=== PATIENT | female | born 1985 | race African-American/Black ===

== ENCOUNTER 2018-08-01 12:29 | Inpatient (IN) ==
[2018-08-01] MEDS ORDERED: NS 1,000 ML IV ONE (13:19)
[2018-08-01] MEDS ORDERED: VANCOMYCIN 1 GM/NS 1 GM/250 ML IVPB IV ONE ×2 (13:19→18:30)
--- NOTE | 2018-08-01 13:35 | PROVIDER DOCUMENTATION ---
This chart was entered by Yesica Samson Scribe, acting as scribe for Alessandro Gross CRNP. HPI-General Adult - General Chief Complaint: Extremity Pain Stated Complaint: CELLULITIS / LEG Time Seen by Provider: 08/01/18 13:13 Source: patient Allergies/Adverse Reactions: Patient Allergies Allergy/AdvReac Type Severity Reaction Status Date / Time No Known Allergies Allergy Verified 03/16/17 20:30 Home Medications: Home Medication List Medication Instructions Recorded Confirmed Last Taken Type Naproxen 500 mg PO BID PRN #15 tablet 03/16/17 Unknown Rx Clindamycin [Cleocin] 150 mg PO Q6HR #30 cap 07/30/18 Unknown Rx - History of Present Illness -Gen Adult Nature of Presenting Problems: 33 yof presents to ed w/co cellulitis right lower leg, swollen, red and warm to touch. pt was treated in ed for flu like symptoms 3 days ago and was given antibiotic for cellulitis. pt has no fever, nvd, sob, or cp. Review of Systems - Adult - REVIEW OF SYSTEMS - ADULT Constitutional: reports: no symptoms reported. denies: chills, fever, fatique Eyes: reports: no symptoms reported Ears, Nose, Mouth & Throat: reports: no symptoms reported Cardiovascular: reports: no symptoms reported Respiratory: reports: no symptoms reported Gastrointestinal: reports: no symptoms reported Genitourinary: reports: no symptoms reported Musculoskeletal: reports: no symptoms reported Integumentary: reports: see HPI, other (cellulitis rt lower leg.). denies: hair loss, itching, mole changes, nail changes, rash Neurological: reports: no symptoms reported Psychiatric: reports: no symptoms reported Endocrine: reports: no symptoms reported Hematologic/Lymphatic: reports: no symptoms reported Allergic/Immunologic: reports: no symptoms reported All Other Systems: Reviewed and Negative Past History - Adult - PAST MEDICAL HISTORY-ADULT Review of Records: reports: Old Records Reviewed, Nursing Assessment Review, Medications Reviewed, Social history reviewed & non-contributory. Major Childhood Illnesses: reports: denies history Cardiovascular: reports: denies history Respiratory: reports: denies history Gastrointestinal: reports: denies history Obstetrical/Gynecological: reports: denies history Genitourinary: reports: denies history Musculoskeletal: reports: denies history Neurological: reports: denies history Endocrine/Immune: reports: denies history Other Conditions: reports: denies history - PRIOR SURGERIES/PROCEDURES Surgical/Procedure History: reports: - IMMUNIZATION STATUS Childhood Immunizations: See Nurse Assessment Flu Vaccine: See Nurse Assessment - FAMILY HISTORY Family History: reviewed, not pertinent - SOCIAL HISTORY Smoking: other (former smoker) Substance Use: denies Physical Exam-General - PHYSICAL EXAM-ADULT Initial Vital Signs Reviewed: Yes - CONSTITUTIONAL General Appearance: appears well, alert, no apparent distress - EYES Eyes: PERRL/EOMI - HEAD, EARS, NOSE, MOUTH & THROAT HENMT: normocephalic/atraumatic, moist mucous membranes, normal ENT inspection, TMs normal, pharynx normal - NECK Neck: non-tender, full range of motion, supple, normal inspection - RESPIRATORY Respiratory: chest non-tender, lungs clear, normal breath sounds - CARDIOVASCULAR Cardiovascular: normal peripheral pulses, regular rate, rhythm - GASTROINTESTINAL (ABDOMEN) Abdominal Exam: normal bowel sounds, non tender, soft - LYMPHATIC Lymphatic: no adenopathy - MUSCULOSKELETAL Back Exam: normal inspection, no CVA tenderness, no vertebral tenderness Extremity: normal range of motion, non-tender, normal inspection - SKIN Integumentary: erythema, swelling (rt lower extremity more swollen than 3 days ago when pt was in er previously.), tenderness, warm. 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, grossly normal, no motor/sensory deficits - PSYCHIATRIC Psych/Mental Status: normal mood/affect, normal thought content, normal thought process, oriented x 3 Progress - PLAN OF CARE/RESULTS Progress/Plan/Lab Results: Vital Signs - 8 hr 08/01/18 12:39 Temperature 98.0 F Pulse Rate 80 Respiratory Rate 18 Blood Pressure 120/056 O2 Sat by Pulse Oximetry 100 Orders Category Date Time Status ED: Urine Bedside ORDERED Care 08/01/18 13:19 Active Saline Loc NOW Care 08/01/18 13:16 Active BLOOD CULTURE [BLDCUL] Stat Lab 08/01/18 13:21 Ordered CBC WITH ELECTRONIC DIFF [HEME] Stat Lab 08/01/18 13:21 Ordered COMPREHENSIVE METABOLIC PANEL [CHEM] Stat Lab 08/01/18 13:21 Ordered LACTATE, PLASMA [CHEM] Stat Lab 08/01/18 13:[address] W/POSS RFLX CULT [URINALYSIS] Stat Lab 08/01/18 13:19 Uncollected 0.9% Sodium Chloride Inj [Ns] 1,000 ml Med 08/01/18 13:19 Active IV 125 mls/hr Vancomycin 1 gm/Ns Med 08/01/18 13:19 Active 1 gm in 250 ml IV NOW Laboratory Tests 08/01/18 08/01/18 08/01/18 13:38 13:38 13:38 WBC 6.78 RBC 5.44 H Hgb 12.4 Hct 36.5 L MCV 67.1 L MCH 22.8 L MCHC 34.0 RDW Std Deviation 14.6 H Plt Count 239 MPV Not Reportable Immature Gran % (Auto) 0.3 Neut % (Auto) 68.5 Lymph % (Auto) 21.2 [place] % (Auto) 8.7 Eos % (Auto) 1.0 Baso % (Auto) 0.3 Immature Gran # (Auto) 0.02 Neut # (Auto) 4.64 Lymph # (Auto) 1.44 [place] # (Auto) 0.59 Eos # (Auto) 0.07 Baso # (Auto) 0.02 Sodium 140 Potassium 3.3 L Chloride 101 Carbon Dioxide 27 Anion Gap 12 BUN 12 Creatinine 0.8 Estimated GFR/1.73 m2 > 60 BUN/Creatinine Ratio 15 Glucose 116 H Calculated Osmolality 280 Calcium 8.7 L Total Bilirubin 0.30 AST 15 ALT 17 Alkaline Phosphatase 59 Total Protein 7.8 Albumin 3.9 Globulin 4.0 Albumin/Globulin Ratio 1.0 Plasma Lactate 1.3 Urine Color Urine Clarity Urine pH Ur Specific [place] Urine Protein Urine Ketones Urine Blood Urine Nitrite Urine Bilirubin Urine Urobilinogen Urine WBC Urine Glucose 08/01/18 13:48 WBC RBC Hgb Hct MCV MCH MCHC RDW Std Deviation Plt Count MPV Immature Gran % (Auto) Neut % (Auto) Lymph % (Auto) [place] % (Auto) Eos % (Auto) Baso % (Auto) Immature Gran # (Auto) Neut # (Auto) Lymph # (Auto) [place] # (Auto) Eos # (Auto) Baso # (Auto) Sodium Potassium Chloride Carbon Dioxide Anion Gap BUN Creatinine Estimated GFR/1.73 m2 BUN/Creatinine Ratio Glucose Calculated Osmolality Calcium Total Bilirubin AST ALT Alkaline Phosphatase Total Protein Albumin Globulin Albumin/Globulin Ratio Plasma Lactate Urine Color YELLOW Urine Clarity CLEAR Urine pH 6.5 Ur Specific [place] 1.015 Urine Protein TRACE A Urine Ketones TRACE Urine Blood 1+ A Urine Nitrite NEGATIVE Urine Bilirubin NEGATIVE Urine Urobilinogen 4 Urine WBC TRACE A Urine Glucose NEGATIVE Discussed results and plan of care with patient. Patient agrees with plan and verbalizes understanding. Result Diagrams: 08/01/18 13:38 08/01/18 13:38 - CONSULTS/PCP/HOSPITALIST Notification #1 *Consult/PCP/Hospitalist*: Dr. Knutson Time Discussed: 15:10 Reason/Comments: Admission Consult Disposition: Admit Departure - Departure Date of Disposition Decision: 08/01/18 Time of Disposition Decision: 14:32 DIAGNOSIS: Cellulitis Qualifiers: Site of cellulitis: extremity Site of cellulitis of extremity: lower extremity Laterality: right Qualified Code(s): L03.115 - Cellulitis of right lower limb Disposition: ADMITTED INPATIENT 09 Certified Medical Emergency: Emergent Condition: Stable Referrals and Follow-Ups: None,PCP [Primary Care Provider] - - Critical Care Note This patient required my direct & personal management of CC.: No Attestation - Physician/ GUS Attestation Patient care was provided by Advanced Practice Provider:: Yes Advanced Practice Provider:: Alessandro Gross Advanced Practice Provider documentation review:: The Mid-level provider documentation, treatment plan and medical decision making was reviewed by the physician who agrees with all treatment and medical decision making by the P. The physician spent face to face time with patient:: No Advanced Practice Provider documentation review:: Supervising physician onsite and consulted in the evaluation and care of this patient. The physician did not have a face to face encounter with the patient. This chart was documented by the indicated scribe, (Yesica Samson Scribe) and accurately reflects the services I performed and decisions made by me, Alessandro Gross CRNP, as attested by the provider's signature.
[2018-08-01 14:06] LABS: BASO# 0.02 X1000 (0.0-0.2); BASO% 0.3 % (0.0-0.8); EOS# 0.07 X1000 (0.0-0.7); HEMATOCRIT 36.5 % (37.0-47.0); HEMOGLOBIN 12.4 g/dL (12.0-16.0); IMM GRAN# 0.02 X1000 (0.0-0.04); IMM GRAN% 0.3 % (0.0-0.5); LYMPH# 1.44 X1000 (1.2-3.4); LYMPH% 21.2 % (20.5-51.1); MCH 22.8 PG (27-31); MCV 67.1 FL (81-99); MONO# 0.59 X1000 (0.11-0.59); MONO% 8.7 % (1.7-9.3); NEUT# 4.64 X1000 (1.4-6.5); NEUT% 68.5 % (42.2-75.2); PLT 239 X1000 (130-400); RBC 5.44 XMIL (4.2-5.4); RDW 14.6 % (11.5-14.5); WBC 6.78 X1000 (4.8-10.8)
[2018-08-01 14:07] LABS: AGAP 12; ALBUMIN 3.9 g/dL (3.5-5.0); ALKALINE PHOSPHATASE 59 U/L (32-104); BUN 12 mg/dL (8-22); CALCIUM 8.7 mg/dL (8.8-10.2); CHLORIDE 101 mmol/L (98-107); COSMO 280; CREATININE 0.8 mg/dL (0.5-0.9); ESTIMATED GFR > 60; GLUCOSE 116 mg/dL (70-104); GOT 15 U/L (10-30); GPT 17 U/L (10-36); POTASSIUM 3.3 mmol/L (3.5-5.1); SODIUM 140 mmol/L (136-145); TCO2 27 mmol/L (25-35); TOTAL PROTEIN 7.8 g/dL (6.3-8.3)
[2018-08-01 14:14] LABS: BILIRUBIN URINE NEGATIVE (NEGATIVE); BLOOD URINE 1+ (NEGATIVE); CLARITY CLEAR (CLEAR); COLOR YELLOW; GLUCOSE URINE NEGATIVE (NEGATIVE); KETONE URINE TRACE mg/dL (NEGATIVE); LEUKOCYTES URINE TRACE (NEGATIVE); NITRITE URINE NEGATIVE (NEGATIVE); PH URINE 6.5; PROTEIN URINE TRACE mg/dL (NEGATIVE); SP GRAVITY URINE 1.015; UROBILINOGEN URINE 4 mg/dL
[2018-08-01 14:40] LABS: URINE SOURCE CLEAN CATCH
[2018-08-01 14:43] LABS: URINE BACTERIA 2+ /HFP; URINE CAST NONE SEEN /LPF; URINE CRYSTAL NONE SEEN /HPF; URINE EPITHELIAL CELLS >10 /HPF (<10); URINE RBC <10 /HPF (<10); URINE YEAST NONE SEEN /HPF
[2018-08-01] MEDS ORDERED: ZOFRAN IV PRN ×2 (15:10→17:27)
[2018-08-01] MEDS ORDERED: TORADOL IV PRN (15:10)
[2018-08-01] MEDS ORDERED: FLU VACCINE IM ONE (17:12)
[2018-08-01] MEDS ORDERED: TYLENOL PO PRN (17:27)
[2018-08-01] MEDS ORDERED: VANCOMYCIN IV PER PHARMACY MISC SCH (17:30)
[2018-08-01] MEDS ORDERED: NS 1,000 ML ONE (21:16)
[2018-08-01] MEDS: ZOSYN 3.375 GM in NS 50 ML IV SCH (21:20)
--- NOTE | 2018-08-02 00:26 | HISTORY AND PHYSICAL ---
CHIEF COMPLAINT: Leg extremity swelling. HISTORY OF PRESENT ILLNESS: Patient is a very pleasant 33-year-old female who notes that her right lower extremity below the knee has been red, swollen, warm to the touch. She was treated in the ED for flu-like symptoms 3 days ago, was given an antibiotic for cellulitis, but has really had no improvement. Denies any fevers or chills. States that the lower extremity on the right is twice the size of the one on the left. Denies any pain otherwise. ALLERGIES: No known drug allergies. MEDICATIONS: Naprosyn, clindamycin from the ER a few days ago. REVIEW OF SYSTEMS: Denies any fevers, chills, cough, congestion. Denies any shortness of breath. Denies any dysuria, frequency, urgency, hesitancy, polyuria or polydipsia. Denies skin rashes, other than current. Denies headaches, blurred vision, change in vision. Denies any focalized numbness or tingling. PAST MEDICAL HISTORY: She has no current chronic active medical problems. SURGICAL HISTORY: She has had a . FAMILY HISTORY: Noncontributory. SOCIAL HISTORY: Patient is a former smoker. Does not drink. OBJECTIVE: Vital Signs: She is afebrile, temp 98 degrees, pulse 80, respiratory 18, BP 120/56, saturation 100% on room air. General: Patient is very pleasant to talk with. She is in no current distress. HEENT: Normocephalic. Neck: Supple. CARDIOVASCULAR: Regular rate. Chest: Clear, nonlabored. Abdomen: Soft nondistended. Extremities: Moves all extremities. She does have 2+ edema, very tender to palpation over her gleason. On the right lower extremity she has an erythematous area without any drainage on the posterior aspect of her right calf. Neurologic: No focal changes. ASSESSMENT: 1. Cellulitis right lower extremity. 2. Edema, right lower extremity. 3. Hypokalemia. 4. Mildly elevated plasma lactate. PLAN: We will admit patient to the hospital. Will observe her hyperglycemia at 116, place her on antibiotics, vancomycin and Zosyn. Pain control as needed and will follow. cc: Genaro Knutson MD
[2018-08-02] MEDS: ZOSYN 3.375 GM in NS 50 ML IV SCH ×5 (01:57→21:25)
[2018-08-02] MEDS ORDERED: VANCOMYCIN 1 GM/NS 1 GM/250 ML IVPB IV SCH (02:00)
[2018-08-02] MEDS ORDERED: NS 1,000 ML ONE (05:07)
[2018-08-02] MEDS: VANCOMYCIN 1,800 MG in NS 250 ML IV SCH ×3 (06:00→18:24)
[2018-08-02] MEDS: LASIX IV SCH (11:04)
[2018-08-02] MEDS ORDERED: BLISTEX MEDICATED BERRY LIP BALM TOP PRN (11:51)
--- NOTE | 2018-08-02 23:46 | PROGRESS NOTE ---
DATE: 08/02/2018 SUBJECTIVE: Patient notes overall that she is feeling a little bit better, still having lots of pain in her right lower extremity as well as in her right ankle. Still having swelling in the right greater than left. Denies any fevers, chills. PHYSICAL EXAM: Vital signs: Temperature 98 degrees, pulse 75, respiratory 18, BP 116/66. General: Patient is awake, currently in no distress. Very pleasant to talk with. HEENT: Normocephalic. Neck: Supple. Cardiovascular: Regular rate. Chest: Clear. Abdomen: Soft. Extremities: Moves all extremities. Neurologic: No changes. Skin: She is noted to have redness to the back of her right lower extremity as well as edema in her right lower extremity and right ankle. ASSESSMENT: 1. Cellulitis right lower extremity. 2. Edema right lower extremity 3. Others. PLAN: We will continue patient in the hospital. Continue antibiotics today. Hopefully, she can be discharged home over the next day or 2, if symptoms improve. cc: Genaro Knutson MD
[2018-08-03] MEDS: ZOSYN 3.375 GM in NS 50 ML IV SCH ×4 (03:39→21:30)
[2018-08-03] MEDS: LASIX IV SCH (09:09)
--- NOTE | 2018-08-03 15:32 | Diag Imaging Result Doc PS360 ---
EXAM: ANKLE 2 VIEWS RIGHT - 08/03/2018 HISTORY: pain TECHNIQUE: Right ankle two views COMPARISON: None. FINDINGS: There is soft tissue swelling which is most prominent medially. There is no fracture or dislocation identified. There are no erosive or destructive changes identified. The joint space appears relatively well preserved. There are possibly mild degenerative changes of the dorsal hindfoot/midfoot. IMPRESSION: Soft tissue swelling. No evidence of fracture or dislocation. No indication of osteomyelitis. Please note that early osteomyelitis can be radiographically occult. Electronically signed by Carlito Gómez 08/03/2018 3:29 PM
[2018-08-03] MEDS: LACTULOSE PO SCH (16:16)
--- NOTE | 2018-08-04 00:30 | PROGRESS NOTE ---
DATE: 08/03/2018 SUBJECTIVE: Patient notes she is having pain in her right ankle. Still having pain to the touch on her right calf. PHYSICAL EXAMINATION: Vital Signs: Temperature 97 degrees, pulse 58, respiratory 18, BP 142/72. General: Patient is awake. She is in no distress. She is sitting up in the bed. HEENT: Normocephalic. Neck: Supple. Cardiovascular: Regular rate. Chest: Clear and nonlabored. Abdomen: Soft. Extremities: Moves all extremities. She is tender to touch over her right ankle. She has trace edema. She has very minimal edema in her right lower extremity. The redness over her right calf appears to be improving. There is no drainage. ASSESSMENT: 1. Cellulitis right lower extremity. 2. Edema. 3. Hypokalemia. 4. Pain. PLAN: We will continue patient in the hospital. Continue antibiotics. We will check an x-ray of her ankle and we will follow. cc: Genaro Knutson MD
[2018-08-04] MEDS: ZOSYN 3.375 GM in NS 50 ML IV SCH ×2 (02:30→08:39)
[2018-08-04] MEDS: LACTULOSE PO SCH ×2 (02:31→12:19)
[2018-08-04 03:43] VITALS: BP 139/74
[2018-08-04] MEDS: LASIX IV SCH (08:40)
[2018-08-04] MEDS ORDERED: MIRALAX PO SCH (09:00)
--- NOTE | 2018-08-05 07:20 | DISCHARGE SUMMARY ---
ADMISSION DATE: 08/01/2018 DISCHARGE DATE: 08/04/2018 DISCHARGE DIAGNOSES: 1. Cellulitis right lower extremity. 2. Chronic edema, right lower extremity. 3. Hypokalemia. 4. Right lower extremity pain. DIAGNOSTICS: Ankle x-ray revealed soft tissue swelling, no evidence of fracture or dislocation. No indication of osteomyelitis. MICROBIOLOGY: 1. Blood cultures revealed no growth x2 after 48 hours. 2. Urine culture revealed E coli. HOSPITAL COURSE: Ms Santa presented to emergency room with increasing right lower extremity pain, redness, and warmth. She was found to have cellulitis for which she received antibiotic coverage of vancomycin and Zosyn. She remained afebrile throughout the hospitalization. Ankle x- ray revealed no osteomyelitis, no evidence of fracture or dislocation. Symptoms have improved and thankfully she is ready to be discharged. DISCHARGE PHYSICAL EXAMINATION: Cardiovascular: Regular rate and rhythm. S1 and S2 are appreciated. Pulmonary: Breath sounds are clear with no increased work of breathing noted. Gastrointestinal: Abdomen is soft, nontender, nondistended. Bowel sounds in all 4 quadrants. Extremities: She does have some right lower extremity edema which she states has improved somewhat. Peripheral pulses are palpable x4 extremities. Neurologic: She is alert and oriented. Discharge vital signs: Blood pressure is 139/74 with a heart rate of 69, respirations are 18, temperature is 98.5 degrees oral, with room air saturations 100%. DISCHARGE MEDICATIONS: Bactrim DS 1 p.o. b.i.d. for 5 days. FOLLOW-UP: She is to follow up her primary care physician in 1 week, sooner if needed. DISCHARGE INSTRUCTIONS: She has been instructed to call to be seen sooner or return to the ER for any syncope, dizziness, chest pain, palpitations, temperature greater than 101, any increasing pain, decreased sensation to her right lower extremity, increase in swelling right lower extremity, any nausea, vomiting, diarrhea, constipation, any black or bloody vomitus or stools, or any questions or concerns that she may have. DISCHARGE DISPOSITION: She is being discharged home in stable condition with family members. TIME SPENT: This is a greater than 30 minute discharge. Dictated by JAZZY Lloyd for Genaro Knutson MD This chart was documented by, JAZZY Lloyd and accurately reflects the services performed, treatment plan and medical decisions as attested by the providers signature Genaro Knutson MD. cc: JAZZY Lloyd MD
--- NOTE | 2018-08-05 11:00 | DISCHARGE SUMMARY ---
ADMISSION DATE: 08/01/2018 DISCHARGE DATE: 08/04/2018 ADDENDUM: Patient was seen and examined by myself. Full note dictated and discussed with nurse practitioner. She presented to the hospital with right lower extremity swelling and ankle pain as well as erythema. She was diagnosed with cellulitis. Placed on Zosyn. Continue to improve. She did have some pain in her ankle. The x-ray was negative. Incidentally was found to have ESBL negative E. coli. She was having no symptoms. This was done on routine lab work. Thankfully, it was also sensitive to Bactrim. She will be changed over to Bactrim and will be discharged home. Please see full note. cc: Genaro Knutson MD
== END 2018-08-04 13:46 | disposition home or self-care (01) | DRG 603 ==
LOC: P.ED 12:29 → P.MEDSURG 15:51
PROVIDERS: ATTEND Family Medicine
CPT/HCPCS: 73600; 80053; 81001; 81025; 83605; 85025; 87040; 87077; 87088; 87186; 96365; 99284; A9270; J1885; J1940; J2543; J3370; J7030; J7050